=== PATIENT | female | born 1995 | race Caucasian/White ===

== ENCOUNTER 2019-06-07 23:35 | Emergency (ER) | payer OTHER ==
--- NOTE | 2019-06-07 23:37 | PDOC ---
History of Present Illness - General Chief Complaint: Pain, Acute Stated Complaint: ABD PAIN Time Seen by Provider: 06/07/19 23:36 - History of Present Illness Initial Comments: 06/07/19 23:59 This 23 y.o. woman with a history of kidney stones and irritable bowel syndrome presents with episode of vomiting followed by hematemesis just prior to presentation. She relates feeling "gassy" with several episodes of diarrhea throughout the day. However, she had no nausea and was able to eat/drink without difficulty. Tonight, she ate chicken wings with slovak fries (take out ) and vomited almost immediately after finishing her meal. Vomitus was semi- digested food , followed by liquid blood(1/2 cup estimate) and patient presented to ER immediately. It is unclear whether there were any clots present with the liquid blood in emesiis. No previous history of hematemesis/ peptic ulcer disease/gastritis. She relates increase in heartburn episodes over the last few months. The patient states that she was drinking beer with her meal tonight but otherwise does not drink alcohol daily basis. She had taken either Excedrin or aspirin earlier today for headache but does not take daily NSAIDs or aspirin. She has history of bleeding with bowel movements and has had colonoscopy which was reportedly normal. She states that origin of her hematochezia is thought to be hemorrhoids or rectal fissure. No known sick contacts (patient does work in healthcare facility,[employer]) No recent travel No daily medications No known ALLERGIES Smokes "occasionally" Social alcohol use/no other recreational drug use Past History - Past Medical History Allergies/Adverse Reactions: Allergies Allergy/AdvReac Type Severity Reaction Status Date / Time No Known Allergies Allergy Verified 03/29/14 15:53 Home Medications: Ambulatory Orders Ondansetron [Zofran Odt -] 4 mg SL TID PRN #12 od.tablet 06/08/19 Pantoprazole Sodium [Protonix -] 40 mg PO ONCE #14 tablet.ec 06/08/19 Anemia: No Asthma: No Cancer: No Cardiac Disorders: No CVA: No COPD: No CHF: No Dementia: No Diabetes: No GI Disorders: No Disorders: No HTN: No Hypercholesterolemia: No Kidney Stones: Yes Liver Disease: No Seizures: No Thyroid Disease: No - Surgical History Abdominal Surgery: No Appendectomy: No Cardiac Surgery: No Cholecystectomy: No Lung Surgery: No Neurologic Surgery: No Orthopedic Surgery: No - Reproductive History Cervical CA: No Dysfunctional Uterine Bleeding: No Ectopic : No Endometrial CA: No Polycystic Ovaries: No Tubal Ligation: No - Immunization History Immunization Up to Date: Yes - Suicide/Smoking/Psychosocial Hx Smoking Status: No Smoking History: Never smoked Have you smoked in the past 12 months: No Number of Cigarettes Smoked Daily: 0 Hx Alcohol Use: No Drug/Substance Use Hx: No Substance Use Type: None Hx Substance Use Treatment: No Review of Systems - Review of Systems Able to Perform ROS?: Yes Comments:: 12 point review of systems is negative except for what is noted in the history of present illness *Physical Exam - Physical Exam Comments: GENERAL: Adult female, alert and oriented 3, no acute distress HEAD: Normal with no signs of trauma. EYES: PERRLA, EOMI, sclera anicteric, conjunctiva clear. ENT: Ears normal, nares patent, oropharynx clear without exudates. Dry mucous membranes. NECK: Normal range of motion, supple without lymphadenopathy, JVD, or masses. LUNGS: Breath sounds equal, clear to auscultation bilaterally. No wheezes, and no crackles. HEART:Regular rate and rhythm, normal S1 and S2 without murmur, rub or gallop. ABDOMEN:.normal bowel sounds No guarding,tenderness or rebound.No masses No distention. EXTREMITIES: Normal range of motion, no edema. No clubbing or cyanosis. No erythema, or tenderness. NEUROLOGICAL: Cranial nerves II through XII grossly intact. Normal speech. No focal neurological deficits. MUSCULOSKELETAL: Back non-tender to palpation, no CVA tenderness SKIN: Warm, Dry, normal turgor, no rashes or lesions noted. Progress Note - Progress Note Progress Note: The patient reports significant relief in her symptoms (epigastric discomfort) after 1 L of normal saline IV, 4 mg of Zofran IV, Protonix 40 mg IV. Clinical presentation most consistent with acute gastritis; she may also have some element of gastroenteritis, triggering hyperacidity and gastritis. Patient will be advised to continue clear liquids diet with advancement to light diet cautiously. She should continue Protonix 40 mg daily until seen by her PMD. Also, prescription for Zofran ODT 4 mg to be used up to 3 times a day as needed for nausea will be sent to her pharmacy. She should return to the ER if she has severe pain/persistent vomiting or fever. She states that she prefers to see her general medical doctor and receive referral to linen clerk from her. She should call her PMD's office on the next business today and arrange follow-up within the next 48 hours. *DC/Admit/Observation/Transfer Diagnosis at time of Disposition: Gastritis Qualifiers: Gastritis type: unspecified gastritis Chronicity: acute Gastritis bleeding: with bleeding Qualified Code(s): K29.01 - Acute gastritis with bleeding - Discharge Dispostion Disposition: HOME Condition at time of disposition: Stable - Prescriptions Prescriptions: Ondansetron [Zofran Odt -] 4 mg SL TID PRN #12 od.tablet PRN Reason: Nausea Pantoprazole Sodium [Protonix -] 40 mg PO ONCE #14 tablet.ec - Referrals Referrals: Johanna Trinh MD [Primary Care Provider] - 2 Days - Patient Instructions Printed Discharge Instructions: Gastritis Additional Instructions: clear liquids, advance diet cautiously Protonix 40 mg daily Zofran ODT4mg up to3 X a day for nausea/vomiting you can use Pepto-Bismol/Maalox or Mylanta for stomach discomfort avoid alcohol, smoking, aspirin/ibuprofen/naproxen until seen by your doctor return to ER if you experience persistent pain, vomiting, bloody stools Call Dr Trinh' office on Monday to arrange followup within 2-3 days - Post Discharge Activity
[2019-06-07 23:42] VITALS: BP 113/77; PULSE 80; TEMP 97.8; BMI 32.8
[2019-06-07] MEDS ORDERED: SODIUM CHLORIDE 1,000 ML IV STA (23:55)
[2019-06-07] MEDS ORDERED: ONDANSETRON 4 MG/2 ML VIAL IVPUSH ONE (23:55)
[2019-06-07] MEDS ORDERED: PANTOPRAZOLE SODIUM 40 MG VIAL IVPB ONE (23:56)
[2019-06-07] MEDS ORDERED: ONDANSETRON 4 MG/2 ML VIAL ONE (23:59)
[2019-06-07] MEDS ORDERED: PANTOPRAZOLE SODIUM 40 MG VIAL ONE (23:59)
== END 2019-06-08 00:57 | disposition home or self-care (01) ==
LOC: FER 23:35
PROC: 3E033GC Introduction of Other Therapeutic Substance into Peripheral Vein, Percutaneous Approach (ICD-10-PCS; principal; 2019-06-07)
PROC: 3E0337Z Introduction of Electrolytic and Water Balance Substance into Peripheral Vein, Percutaneous Approach (ICD-10-PCS; 2019-06-07)
DX: K29.01 Acute gastritis with bleeding (principal)
CPT/HCPCS: 99282-25; J7030